=== PATIENT | female | born 1950 ===

== ENCOUNTER 2016-12-31 13:32 | Inpatient (IN) ==
--- NOTE | 2016-12-31 13:58 | Emergency Department Note ---
Arrival - Arrival Chief Complaint: Urogenital - Female Stated Complaint: transfer from [facility] [place] ED Nursing Triage Note: PT TRANFERRED FROM [facility] FOR EVALUATION OF UTI AND HYPOTENSION. Mode of Arrival: Stretcher Limitations: Physical Limitation (Expressive aphasia) Source: Old Records Reviewed, RN Notes Reviewed - History of Present Illness HPI Narrative: Patient is a 66-year-old [place] female sent from the [facility] with urinary tract infection and reported blood pressure of 80 systolic. The patient is unable to provide history due to her expressive aphasia. She only responds to questions with "yes and no". Onset (ago): unknown Allergies/Adverse Reactions: Allergies Allergy/AdvReac Type Severity Reaction Status Date / Time ampicillin Allergy Unknown/Unable Verified 12/31/16 13:50 to obtain cephalexin Allergy Unknown/Unable Verified 12/31/16 13:50 to obtain Home Medications: Home Medications Medication Instructions Recorded Confirmed Type Albuterol Inhaler [Proventil 2 puff INH Q4-6H PRN 12/19/15 12/19/15 History Inhaler] Carboxymethylcellulos/Glycerin 1 drop BOTH EYES Q4HR 12/19/15 12/19/15 History [Refresh Optive] Fexofenadine [Rita] 60 mg PO BID 12/19/15 12/19/15 History Propylene Glycol/Peg 400 [Systane 1 drop BOTH EYES Q6HR 12/19/15 12/19/15 History Gel Drops] amLODIPine [Norvasc] 5 mg PO DAILY 12/19/15 12/19/15 History QUEtiapine [SEROquel] 25 mg PO DAILY #30 tablet 12/28/15 Rx QUEtiapine [SEROquel] 50 mg PO BEDTIME #30 tablet 12/28/15 Rx Acetaminophen Tab [Tylenol Tab] 325 mg PO Q4H PRN #0 tablet 12/29/15 Rx Albuterol Neb [Proventil Neb] 2.5 mg RESP TX RT Q1H PRN #0 12/29/15 Rx nebulization solution Mineral Oil/Petrolat Oph Oint 1 applic BOTH EYES Q4H PRN #0 12/29/15 Rx [Refresh PM Oph Oint] ophthalmic ointment Dicyclomine HCl 10 mg PO BID 12/31/16 12/31/16 History Mirtazapine 7.5 mg PO BEDTIME 12/31/16 12/31/16 History Review of System - Review of System 12 point system: reviewed and no additional remarkable complaints except as stated Medical,Surgical,& Family Hx - Medical History Cardio: History of: Hypertension Neurology: History of: Dementia - Social History Smoking Status: Unknown if ever smoked Frequency of Alcohol Use: None Type of Drug Use: None Exam Vital Signs: Vital Signs Temperature 97.8 F 12/31/16 13:32 Pulse Rate 73 12/31/16 16:00 Respiratory Rate 16 12/31/16 16:00 Blood Pressure 148/74 12/31/16 16:00 O2 Sat by Pulse Oximetry 96 12/31/16 16:00 GENERAL: This is a well-nourished well-developed chronically ill-appearing female in no apparent distress. VITAL SIGNS: Reviewed HEENT: Head is atraumatic and normocephalic. Pupils are equal round react to light. Extraocular movements are intact. Oropharynx is benign with moist mucous membranes. NECK: Neck is soft and supple without tenderness. There are no masses. There is no lymphadenopathy. LUNGS: Lungs are clear to auscultation. Chest rises symmetrically. There is no chest wall tenderness. CV: Heart is regular rate and rhythm without murmurs rubs or gallops. ABDOMEN: Abdomen is soft, nontender to palpation. There are no abdominal abnormal masses palpated. There is no organomegaly. Bowel sounds are present and active. SKIN: Skin is warm and dry. No rash. EXTREMITIES: Patient has full range of motion without tenderness. There is no pedal edema. NEUROLOGIC: Awake with expressive aphasia. Course - Consultations Consultation #1: Discussed with hospitalist. Patient will be admitted to their service. Time: 14:01 Results - Labs Lab Results: I have reviewed the patients labs Labs: Lab performed at [facility] and reviewed by me CBC: WBCs 4000, hemoglobin 11.9, hematocrit 35.7, platelet count 240,000 Chemistry: Sodium 143, potassium 3.9, chloride 107, CO2 27.6, BUN 16, creatinine 0.5, glucose 96 Urinalysis: Specific gravity 1.010, pH 6.0, nitrite positive, leukocyte esterase positive, WBCs 15-20 Critical Care Time Critical Care Time: No Disposition Clinical Impression: Urinary tract infection, Expressive aphasia Case discussed with: patient Disposition: Still a Patient Condition: Stable
[2016-12-31] MEDS ORDERED: LEVOFLOXACIN INJ 500 MG in PREMIX 1 EACH IV STA (14:01)
[2016-12-31] MEDS ORDERED: LEVOFLOXACIN INJ 100 ML IV ONE (14:04)
--- NOTE | 2016-12-31 15:06 | Hospitalist History & Physical ---
<Beto Garcia - Last Filed: 12/31/16 14:59> Assessment and Plan - Time spent with patient Time spent with patient: Greater than 30 minutes (1) Urinary tract infection Status: Acute Assessment and plan: Admit for observation. Continue IV levaquin. Recheck labs in a.m. Patient can likely return to [place] on tomorrow if medically appropriate and no acute events occur overnight. Current Visit: Yes (2) Expressive aphasia Status: Acute Current Visit: Yes History of Present Illness Chief complaint: uti History of present illness: Ms. Ramirez is a 66 year old [place] female jail resident who presents as a transfer from [facility] for further evaluation of a UTI. The patient has expressive aphasia, so a history is unobtainable from the patient. According to the ER report, the patient was found to be hypotensive at [facility] and thought to be septic due to UTI with a SBP reported to be in the 80s. On arrival here, and per her records, SBP was normal (113-126). On exam, the patient is sitting up in bed but unable to provide any significant communication , only responding with "yes or no" and occasionally repeating words she hears like "medicine" and "ok". External facility records do show a UA with 15-20 WBCs and nitrates. The case has been discussed with both Dr. Contreras, ER physician , and Dr. Montalvo, admitting physician, and she will be admitted for observation and antibiotic treatment. I expect she can return either to [facility] or her jail on tomorrow with continued oral antibiotic coverage. Home meds will be reviewed and reconciled. Home Medications Medication Instructions Recorded Confirmed Type Albuterol Inhaler [Proventil 2 puff INH Q4-6H PRN 12/19/15 12/19/15 History Inhaler] Carboxymethylcellulos/Glycerin 1 drop BOTH EYES Q4HR 12/19/15 12/19/15 History [Refresh Optive] Fexofenadine [Rita] 60 mg PO BID 12/19/15 12/19/15 History Propylene Glycol/Peg 400 [Systane 1 drop BOTH EYES Q6HR 12/19/15 12/19/15 History Gel Drops] amLODIPine [Norvasc] 5 mg PO DAILY 12/19/15 12/19/15 History QUEtiapine [SEROquel] 25 mg PO DAILY #30 tablet 12/28/15 Rx QUEtiapine [SEROquel] 50 mg PO BEDTIME #30 tablet 12/28/15 Rx Acetaminophen Tab [Tylenol Tab] 325 mg PO Q4H PRN #0 tablet 12/29/15 Rx Albuterol Neb [Proventil Neb] 2.5 mg RESP TX RT Q1H PRN #0 12/29/15 Rx nebulization solution Mineral Oil/Petrolat Oph Oint 1 applic BOTH EYES Q4H PRN #0 12/29/15 Rx [Refresh PM Oph Oint] ophthalmic ointment Dicyclomine HCl 10 mg PO BID 12/31/16 12/31/16 History Mirtazapine 7.5 mg PO BEDTIME 12/31/16 12/31/16 History Allergies Allergy/AdvReac Type Severity Reaction Status Date / Time ampicillin Allergy Unknown/Unable Verified 12/31/16 13:50 to obtain cephalexin Allergy Unknown/Unable Verified 12/31/16 13:50 to obtain Medical,Surgical,& Family Hx - Medical History Cardio: History of: Hypertension Neurology: History of: Dementia - Social History Smoking Status: Unknown if ever smoked Frequency of Alcohol Use: None Type of Drug Use: None Marital Status: Single Lives With:: jail Functional capacity: bed bound ROS unobtainable: due to mental status Exam - Constitutional Vitals: Period Temp Pulse Resp BP Sys/Allen Pulse Ox Last 24 Hr 97.8 F-97.8 F 63-63 16-16 132-132/66-66 99 Exam: General appearance: normal weight, no acute distress - Head Head exam: Present: normocephalic, atraumatic - Eye Eye exam: Present: EOMI. Absent: conjunctival injection, nystagmus Pupils: Present: VIVEK, normal accommodation - ENT ENT exam: Present: normal exam, normal external ear exam - Neck Neck exam: Present: normal inspection. Absent: lymphadenopathy, tenderness, thyromegaly - Respiratory Respiratory exam: Present: clear to auscultation bilaterally. Absent: rales, rhonchi, wheezes - Cardiovascular Cardiovascular exam: Present: regular rate and rhythm. Absent: carotid bruit, gallop, rubs - GI/Abdominal GI/Abdominal exam: Present: normal bowel sounds. Absent: ascites, distended, mass - Extremities Exam Extremities exam: Present: normal inspection, normal capillary refill. Absent: edema - Back Exam Back exam: Absent: CVA tenderness (L), CVA tenderness (R) - Neurological Exam Neurological exam: Present: altered - Psychiatric Psychiatric exam: Present: normal affect, normal mood - Skin Skin exam: Present: normal color, warm, dry Results - Labs Lab Results: I have reviewed the past 24 hour labs (see external facility records) <Rhonda Montalvo - Last Filed: 01/01/17 08:05> History of Present Illness History of present illness: Ms. Ramirez is a 66 year old female who presents with hypotension and UTI. Patient was seen, examined and discussed with the COAL DIGGER. I agree with the current management. Exam - Constitutional Vitals: Period Temp Pulse Resp BP Sys/Allen Pulse Ox Last 24 Hr 96.9 F-98.4 F 63-91 16-19 119-173/57-102 93-100 Results - Labs CBC & BMP: 01/01/17 03:28 01/01/17 03:29
[2016-12-31] MEDS ORDERED: ALBUTEROL 2.5 MG/3 ML NEB RESP TX PRN ×2 (16:38)
[2016-12-31] MEDS ORDERED: ACETAMINOPHEN 325 MG TABLET PO PRN (16:38)
[2016-12-31] MEDS ORDERED: MINERAL OIL/PETROLATUM OPH OINT 3.5 GM TUBE BOTH EYES PRN (16:38)
[2016-12-31] MEDS ORDERED: ONDANSETRON 4 MG/2 ML VIAL IV PRN (16:38)
[2016-12-31] MEDS: SODIUM CHLORIDE 0.9% 1,000 ML IV SCH (17:01)
--- NOTE | 2016-12-31 17:14 | XRay Report ---
History: Hypotension Date: 12/31/2016 Study: Chest x-ray AP portable Comparison exam: December 19, 2015 chest x-ray The cardiac silhouette is upper normal in size. There is no mediastinal mass. There is mild to moderate aortic arch calcification. The pulmonary vasculature is not engorged. There is an occasional scattered calcified granuloma in the right mid to lower lung. The lungs and pleural spaces are otherwise clear. There is mild to moderate thoracic spondylosis. Surgical clips overlie the right upper abdomen, possibly from prior cholecystectomy Impression: No acute cardiopulmonary process. No adverse interval change PROCEDURE INTERPRETED AT [facility] DEPARTMENT OF RADIOLOGY Final Report Signed by: Dr. Otilia Berumen
[2016-12-31] MEDS: POLYVINYL ALCOHOL 1.4% OPH SOLN 15 ML BOTTLE BOTH EYES SCH ×2 (17:57→23:32)
[2016-12-31] MEDS: CARBOXYMETHYLCELLULOSE 1% OPH SOLN BOTH EYES SCH ×2 (17:57→21:34)
[2016-12-31 18:13] LABS: Basophils % 0.2 % (0.0-0.8); Eosinophils % 0.2 % (0.00-10.9); Hematocrit 40.5 VOL% (35.7-47.0); Hemoglobin 13.7 GM/DL (12.0-16.0); Immature Granulocytes % 0.5 %; Immature Granulocytes Absolute 0.03 #; Lymphocytes # 0.8 10*3/uL (1.4-4.0); Lymphocytes % 12.7 % (21.3-54.2); Mean Corpuscular HGB Conc 33.8 GM/DL (32-36); Mean Corpuscular Hemoglobin 30 PG (27-34); Mean Corpuscular Volume 88.2 FL (87-102); Mean Platelet Volume 10.2 FL (9.6-12.0); Monocytes # 0.2 10*3/uL (0.11-0.8); Monocytes % 4.1 % (1.7-12.7); Neutrophils # 4.9 10*3/uL (1.4-7.4); Neutrophils % 82.3 % (38.7-73.9); Platelet Count 227 T/CUMM (130-400); Red Blood Count 4.59 MC/CUMM (3.8-5.5); Red Cell Distribution Width 12.3 % (9.3-17.3); White Blood Count 5.9 T/CUMM (4-12)
[2016-12-31 18:48] LABS: Troponin I Only < 0.015 NG/ML (0.00-0.045)
[2016-12-31 19:14] LABS: Bilirubin,Total 1.2 MG/DL (0.2-1.0); Osmolality,Calculated 275.7 MOS/KG (273-304); Potassium 3.7 MMOL/L (3.5-5.1); Thyroid Stimulating Hormone 0.658 uIU/ml (0.358-3.74); Total Protein 7.3 G/DL (6.4-8.3)
[2016-12-31] MEDS: FEXOFENADINE 60 MG TABLET PO SCH (21:09)
[2016-12-31] MEDS: MEROPENEM 500 MG in SODIUM CHLORIDE 0.9% 100 ML IV SCH (21:09)
[2016-12-31] MEDS: QUEtiapine 25 MG TABLET PO SCH (21:09)
[2016-12-31] MEDS: ENOXAPARIN 30 MG/0.3 ML SYRINGE SUBCUT SCH (21:34)
[2017-01-01] MEDS: CARBOXYMETHYLCELLULOSE 1% OPH SOLN BOTH EYES SCH ×6 (02:26→21:00)
[2017-01-01 04:10] LABS: Basophils % 0.3 % (0.0-0.8); Eosinophils % 0.3 % (0.00-10.9); Hematocrit 34.4 VOL% (35.7-47.0); Immature Granulocytes % 0.2 %; Immature Granulocytes Absolute 0.01 #; Lymphocytes % 16.5 % (21.3-54.2); Mean Corpuscular HGB Conc 34.9 GM/DL (32-36); Mean Corpuscular Hemoglobin 30 PG (27-34); Mean Platelet Volume 10.1 FL (9.6-12.0); Monocytes # 0.4 10*3/uL (0.11-0.8); Monocytes % 6.1 % (1.7-12.7); Neutrophils # 4.6 10*3/uL (1.4-7.4); Neutrophils % 76.6 % (38.7-73.9); Platelet Count 229 T/CUMM (130-400); White Blood Count 5.9 T/CUMM (4-12)
[2017-01-01 04:41] LABS: Albumin 3.4 G/DL (3.4-5.0); Bilirubin,Total 1.3 MG/DL (0.2-1.0); Calcium 8.7 MG/DL (8.5-10.1); Osmolality,Calculated 277.4 MOS/KG (273-304); Potassium 3.6 MMOL/L (3.5-5.1)
[2017-01-01 04:43] LABS: Troponin I Only < 0.015 NG/ML (0.00-0.045)
[2017-01-01] MEDS: POLYVINYL ALCOHOL 1.4% OPH SOLN 15 ML BOTTLE BOTH EYES SCH ×5 (06:33→23:22)
[2017-01-01] MEDS: SODIUM CHLORIDE 0.9% 1,000 ML IV SCH ×2 (06:57→18:28)
[2017-01-01] MEDS: MEROPENEM 500 MG in SODIUM CHLORIDE 0.9% 100 ML IV SCH ×2 (08:10→21:00)
[2017-01-01] MEDS: FEXOFENADINE 60 MG TABLET PO SCH ×3 (08:10→23:20)
[2017-01-01] MEDS: PANTOPRAZOLE 40 MG TABLET PO SCH (08:10)
[2017-01-01] MEDS: QUEtiapine 25 MG TABLET PO SCH ×3 (08:10→21:00)
--- NOTE | 2017-01-01 11:04 | Hospitalist Progress Note ---
Assessment and Plan (1) Urinary tract infection Status: Acute Assessment and plan: Continue IV antibiotics Follow UC, BC Current Visit: Yes (2) Expressive aphasia Status: Acute Assessment and plan: stable Current Visit: Yes (3) Acute renal insufficiency Status: Acute Assessment and plan: continue with IVf, avoid nephrotoxics Current Visit: Yes Hospitalist: Subjective Interval history: Patient seen. She feels much better.Her blood pressure has improved Exam - Constitutional Vitals: Period Temp Pulse Resp BP Sys/Allen Pulse Ox Last 24 Hr 96.9 F-98.4 F 63-91 16-19 119-173/57-102 93-100 General appearance: no acute distress - Head Head exam: Present: normal inspection - Respiratory Respiratory exam: Present: clear to auscultation bilaterally - Cardiovascular Cardiovascular exam: Present: regular rate and rhythm - GI/Abdominal GI/Abdominal exam: Present: normal bowel sounds - Extremities Exam Extremities exam: Present: normal inspection Results - Labs CBC & BMP: 01/01/17 03:28 01/01/17 03:29 Lab Results: I have reviewed the past 24 hour labs
[2017-01-01] MEDS: ENOXAPARIN 30 MG/0.3 ML SYRINGE SUBCUT SCH (19:50)
[2017-01-02] MEDS: CARBOXYMETHYLCELLULOSE 1% OPH SOLN BOTH EYES SCH ×6 (01:45→21:11)
[2017-01-02] MEDS: SODIUM CHLORIDE 0.9% 1,000 ML IV SCH ×3 (01:46→22:29)
[2017-01-02 04:51] LABS: Basophils % 0.5 % (0.0-0.8); Eosinophils % 0.5 % (0.00-10.9); Hematocrit 36.2 VOL% (35.7-47.0); Hemoglobin 12.8 GM/DL (12.0-16.0); Immature Granulocytes % 0.2 %; Immature Granulocytes Absolute 0.01 #; Lymphocytes # 1.4 10*3/uL (1.4-4.0); Lymphocytes % 25.6 % (21.3-54.2); Mean Corpuscular HGB Conc 35.4 GM/DL (32-36); Mean Corpuscular Hemoglobin 30 PG (27-34); Monocytes # 0.5 10*3/uL (0.11-0.8); Monocytes % 8.8 % (1.7-12.7); Neutrophils # 3.5 10*3/uL (1.4-7.4); Neutrophils % 64.4 % (38.7-73.9); Platelet Count 180 T/CUMM (130-400); Red Blood Count 4.21 MC/CUMM (3.8-5.5); Red Cell Distribution Width 12.2 % (9.3-17.3); White Blood Count 5.5 T/CUMM (4-12)
[2017-01-02 05:16] LABS: Calcium 8.8 MG/DL (8.5-10.1); Osmolality,Calculated 276.4 MOS/KG (273-304); Potassium 3.7 MMOL/L (3.5-5.1)
[2017-01-02] MEDS: POLYVINYL ALCOHOL 1.4% OPH SOLN 15 ML BOTTLE BOTH EYES SCH ×3 (06:33→18:10)
[2017-01-02] MEDS: MEROPENEM 500 MG in SODIUM CHLORIDE 0.9% 100 ML IV SCH ×2 (08:15→21:07)
[2017-01-02] MEDS: FEXOFENADINE 60 MG TABLET PO SCH ×3 (08:16→21:11)
[2017-01-02] MEDS: PANTOPRAZOLE 40 MG TABLET PO SCH (08:16)
[2017-01-02] MEDS: QUEtiapine 25 MG TABLET PO SCH ×3 (08:16→21:12)
--- NOTE | 2017-01-02 11:18 | Hospitalist Progress Note ---
Assessment and Plan (1) Urinary tract infection Status: Acute Assessment and plan: UC grew gram negative rods continue IV antibiotics Follow BC Current Visit: Yes (2) Expressive aphasia Status: Acute Assessment and plan: stable Current Visit: Yes (3) Acute renal insufficiency Status: Acute Assessment and plan: Improved. Current Visit: Yes Hospitalist: Subjective Interval history: Patient seen with family members in the room. No new complaints. Hopefully, she will go back to the [place] in am. Exam - Constitutional Vitals: Period Temp Pulse Resp BP Sys/Allen Pulse Ox Last 24 Hr 97.2 F-98.1 F 65-106 15-18 108-147/46-77 94-98 General appearance: no acute distress - Head Head exam: Present: normal inspection - Respiratory Respiratory exam: Present: clear to auscultation bilaterally - Cardiovascular Cardiovascular exam: Present: regular rate and rhythm - GI/Abdominal GI/Abdominal exam: Present: normal bowel sounds - Extremities Exam Extremities exam: Present: normal inspection Results - Labs CBC & BMP: 01/02/17 03:57 01/02/17 03:57 Lab Results: I have reviewed the past 24 hour labs
[2017-01-02] MEDS: ENOXAPARIN 30 MG/0.3 ML SYRINGE SUBCUT SCH (21:06)
[2017-01-03] MEDS: POLYVINYL ALCOHOL 1.4% OPH SOLN 15 ML BOTTLE BOTH EYES SCH ×3 (00:22→11:50)
[2017-01-03] MEDS: CARBOXYMETHYLCELLULOSE 1% OPH SOLN BOTH EYES SCH ×3 (03:33→09:23)
[2017-01-03] MEDS: MEROPENEM 500 MG in SODIUM CHLORIDE 0.9% 100 ML IV SCH (08:38)
[2017-01-03] MEDS: QUEtiapine 25 MG TABLET PO SCH (08:38)
[2017-01-03] MEDS: PANTOPRAZOLE 40 MG TABLET PO SCH (08:38)
--- NOTE | 2017-01-03 08:49 | Discharge Summary ---
<Margo Zambrano - Last Filed: 01/03/17 09:06> Hospital Course - Hospital Course Hospital Course: Ms Ramirez is a 66-year-old [place] female sent from the [facility] with urinary tract infection and reported blood pressure of 80 systolic. The patient is unable to provide history due to her expressive aphasia. She only responds to questions with "yes and no". Lab performed at [facility]: CBC: WBCs 4000, hemoglobin 11.9, hematocrit 35.7, platelet count 240,000, Chemistry: Sodium 143, potassium 3.9, chloride 107, CO2 27.6, BUN 16, creatinine 0.5, glucose 96 Urinalysis: Specific gravity 1.010, pH 6.0, nitrite positive, leukocyte esterase positive, WBCs 15-20 According to the ER report, the patient was found to be hypotensive at [facility] and thought to be septic due to UTI with a SBP reported to be in the 80s. On arrival here, and per her records, SBP was normal (113-126). On exam, the patient is sitting up in bed but unable to provide any significant communication , only responding with "yes or no" and occasionally repeating words she hears like "medicine" and "ok". External facility records do show a UA with 15-20 WBCs and nitrates. She was bolused with IVF, admitted and started on IV Meropenem and continued on IVF. Her home bp meds were held. UC grew E.coli which is resistant to Levaquin, cipro, bactrim and BC showed no growth.. Patient 's symptoms improved and vitals remained stable. She was happy and in good spirit this am. She will be dcd on nitrofurantoin x 7days She will be dcd back to [facility].She will follow up care with Primary Care Physician in 1week. - Time spent with patient Time with patient DS: Less than 30 minutes Discharge Plan - Discharge Data Disposition: Disch/Xfer to Snf - Discharge Medications New Nitrofurantoin Macrocrystal [Nitrofurantoin] 100 mg PO QID #30 capsule Pantoprazole Tab [Protonix Tab] 40 mg PO DAILY tablet Continue Carboxymethylcellulos/Glycerin [Refresh Optive] 1 drop BOTH EYES Q4HR Albuterol Inhaler [Proventil Inhaler] 2 puff INH Q4-6H PRN PRN Reason: Shortness Of Breath/Wheezing Fexofenadine [Rita] 60 mg PO BID amLODIPine [Norvasc] 5 mg PO DAILY Propylene Glycol/Peg 400 [Systane Gel Drops] 1 drop BOTH EYES Q6HR QUEtiapine [SEROquel] 25 mg PO DAILY #30 tablet QUEtiapine [SEROquel] 50 mg PO BEDTIME #30 tablet Acetaminophen Tab [Tylenol Tab] 325 mg PO Q4H PRN #0 tablet PRN Reason: fever, headache/body aches Albuterol Neb [Proventil Neb] 2.5 mg RESP TX RT Q1H PRN #0 nebulization solution PRN Reason: Shortness Of Breath/Wheezing Mineral Oil/Petrolat Oph Oint [Refresh PM Oph Oint] 1 applic BOTH EYES Q4H PRN #0 ophthalmic ointment PRN Reason: DRY EYES Mirtazapine 7.5 mg PO BEDTIME Dicyclomine HCl 10 mg PO BID - Follow Up or Referral - Forms/Instructions Exam - Constitutional Vitals: Period Temp Pulse Resp BP Sys/Allen Pulse Ox Last 24 Hr 97.4 F-98.7 F 71-78 18-22 113-147/58-77 93-99 General appearance: normal weight, no acute distress - Head Head exam: Present: normal inspection - Eye Eye exam: Present: EOMI Pupils: Present: VIVEK - Neck Neck exam: Present: normal inspection. Absent: thyromegaly - Respiratory Respiratory exam: Present: clear to auscultation bilaterally. Absent: wheezes - Cardiovascular Cardiovascular exam: Present: regular rate and rhythm - GI/Abdominal GI/Abdominal exam: Present: normal bowel sounds, soft. Absent: tenderness, rebound - Extremities Exam Extremities exam: Present: normal inspection. Absent: edema - Neurological Exam Neurological exam: Present: other (expressive aphasia r/t CVA history.) - Psychiatric Psychiatric exam: Present: normal affect, normal mood. Absent: anxious - Skin Skin exam: Present: normal color, warm Discharge Results Procedures and tests throughout hospitalization: Pending Orders 12/31/16 17:33 Blood Culture Routine Labs on day of discharge: Preliminary micro results at discharge 12/31/16 17:33 Blood Culture - Preliminary Blood No growth at 1 day 12/31/16 17:33 Blood Culture - Preliminary Blood No growth at 1 day DS: Provider Date of admission: 12/31/16 14:22 Primary care physician: Yoshi Lopez MD Attending physician on admission: Rhonda Montalvo MD Discharging clinician: Margo Zambrano NP <Rhonda Montalvo - Last Filed: 01/03/17 11:40> Hospital Course - Time spent with patient Time with patient DS: Greater than 30 minutes (time spent:40mins) Diagnosis - Discharge Diagnosis (1) Urinary tract infection Status: Acute (2) Expressive aphasia Status: Acute (3) Acute renal insufficiency Status: Acute Discharge Plan - Discharge Data Condition at Discharge: Stable Discharge Diet: advance to your usual diet Activity: resume usual activities as tolerated - Forms/Instructions Additional Discharge Instructions: Follow with pCP in 1week
[2017-01-03] MEDS: FEXOFENADINE 60 MG TABLET PO SCH (09:23)
--- NOTE | 2017-01-03 11:14 | Physician Query Form ---
CLICK EDIT DOCUMENT TO SELECT QUERY ANSWER --> OK --> SIGN PROVIDERS: Make your selection(s) from the choices in EACH section by typing an "x" and enter comments in the comment section. Please use your independent medical judgment in providing your response. This request does not imply that any particular answer is desired or expected. CLINICAL INDICATORS: (Providers should not edit this section) Height: 5' 1" Weight: 92 Pounds Patient Navigator BMI: 17.4# Nutritional supplements: "Nutrition Supplement Trial"/ "VHC Boost w/ all meals ". Knitting Machine Operator Automatic notes: Other clinical notes: The medical record indicates that the patient was admitted with an UTI, BMI 17.4#, Height 5' 1", Weight 92#" well-nourished well-developed chronically ill- appearing", "normal weight", Per Dietary notes "Loss of body fat", "Loss of Muscle Mass" and the patient was given "Nutrition Supplement Trial"/ "VHC Boost w/ all meals". Based on the above, which following choice most accurately represents the patient's nutritional status? ( ) Malnutrition ( ) mild (x ) moderate ( ) severe ( ) Protein calorie malnutrition ( ) mild ( ) moderate ( ) severe ( ) Emaciation due to malnutrition ( ) Nutritional marasmus ( ) Cachexia ( ) Underweight ( ) No nutritional deficiency ( ) Other, please specify: ( ) Clinically unable to determine Mild Malnutrition (BMI < 18.5, % Normal Body Weight 85-95%) Moderate Malnutrition (BMI < 17, % Normal Body Weight 75-85%) Severe Malnutrition (BMI < 16, % Normal Body Weight < 75%) Source: Fe COMMENTS: PLEASE ALSO DOCUMENT RESPONSE IN PROGRESS NOTES AND/OR DISCHARGE SUMMARY Use of terms such as suspected, likely, or probable (associated with a specific diagnosis that is being evaluated, monitored, or treated as if it exists) are acceptable and can be restated in the discharge summary if not ruled out. MTDD
[2017-01-03 11:56] VITALS: BP 136/61
[2017-01-03] MEDS: SODIUM CHLORIDE 0.9% 1,000 ML IV SCH (12:13)
== END 2017-01-03 12:32 | DRG 690 ==
LOC: EDUNIT# → EDBD → N.ED 13:32 → N.EDINP 14:22 → N.2E 16:30
PROVIDERS: ADMIT Internal Medicine; ATTEND Internal Medicine